=== PATIENT | female | born 1960 | race Caucasian/White ===

== ENCOUNTER 2016-04-21 09:59 | Day surgery (SDC) | payer BC ==
[~2016-04-21] VITALS: Ht 157.5 cm; Wt 91.0 kg
[~2016-04-21 09:59] MED LIST: ALPRAZOLAM0.25 M2 PO; CITALOPRAM HBR40 MG PO; COMBIVENT RESPIM4 GM IH; FLEXERIL5 MG PO; NEXIUM40 MG PO; OMNICEF50 MG/1 ML PO; PREDNISONE20 MG PO; TORADOL10 MG PO
[2016-04-21] MEDS ORDERED: ASPIRIN81 M2 PO (10:32)
[2016-04-21 12:29] LABS: BASE EXCESS -1.4 mEq/L (-3 to +3); BICARBONATE 24.3 mEq/L (22-26); CARBOXY HGB 1.3 % (0-5); METHEMOGLOBIN 1.6 % (0-1.5); PCO2 44 mm Hg (35-45); PO2 47 mm Hg (80-100); pH 7.35 (7.35-7.45)
[2016-04-21 12:30] LABS: COMMENTS - BLOOD GASES PA
== END 2016-04-21 16:48 | disposition home or self-care (01) ==
LOC: CATH 09:59
PROVIDERS: Internal Medicine Cardiovascular Disease
DX: R07.9 Chest pain, unspecified (principal); R06.02 Shortness of breath; I25.10 Atherosclerotic heart disease of native coronary artery without angina pectoris; I27.2 Other secondary pulmonary hypertension; J44.9 Chronic obstructive pulmonary disease, unspecified; E66.9 Obesity, unspecified; Z68.37 Body mass index [BMI] 37.0-37.9, adult; Z87.891 Personal history of nicotine dependence; Z88.5 Allergy status to narcotic agent; Z88.8 Allergy status to other drugs, medicaments and biological substances
CPT/HCPCS: 36600; 82803; C1769; C1887; C1894; J1644; J2250; J3010